=== PATIENT | male | born 1985 | race Caucasian/White ===

== ENCOUNTER 2017-05-02 21:06 | Emergency (ER) | payer OTHER ==
[~2017-05-02] VITALS: Ht 165.1 cm; Wt 68.0 kg
[~2017-05-02 21:06] MED LIST: ACYC200 PO; ACYC400 PO; ALPR.25 PO; AMOX500; AMOX500 PO; Bactrim Ds Tab1 EACH PO; CANNABIS; CEPH500 PO; CLON1 PO; DIAZ2 PO; HYDACE10B PO; HYDACE5 PO; IBUP200 PO; IBUP600 PO; IBUP800 PO; Keflex500 MG PO; MINO100 PO; NAPR500 PO; NAPR500EC; NIAC500 PO; NYST100TC; Naprosyn500 MG PO; OXYACE5T PO; PARO20 PO; PENVK500 PO; PROM25 PO; RXCLIN PO; RXHYDACE PO; SILSUL1TC TOP; SULTRIDS PO
[2017-05-03] MEDS ORDERED: Vancocin 11000 MG/20 INJ (17:01)
== END 2017-05-02 23:35 | disposition home or self-care (01) ==
LOC: ER 21:06
DX: L08.9 Local infection of the skin and subcutaneous tissue, unspecified (principal); F17.200 Nicotine dependence, unspecified, uncomplicated; Z98.890 Other specified postprocedural states; Z79.899 Other long term (current) drug therapy
CPT/HCPCS: 96365; 99282; J3370; J7050

== ENCOUNTER → 2018-06-08 | Outpatient (CLI) | payer OTHER ==
[~2018-06-08] MED LIST changes: +Vancocin 11000 MG/20 INJ
== END | disposition home or self-care (01) ==
LOC: LAB SHORT 13:40 → LAB EV 13:40
DX: L03.115 Cellulitis of right lower limb (principal)
CPT/HCPCS: 87070; 87077; 87147; 87186; 87205

== ENCOUNTER 2019-05-12 19:01 | Emergency (ER) | payer OTHER ==
[~2019-05-12] VITALS: Ht 162.6 cm; Wt 68.0 kg
== END 2019-05-12 22:47 | disposition home or self-care (01) ==
LOC: ER 19:01
DX: S60.222A Contusion of left hand, initial encounter (principal); W22.8XXA Striking against or struck by other objects, initial encounter; Y99.0 Civilian activity done for income or pay; F17.210 Nicotine dependence, cigarettes, uncomplicated
CPT/HCPCS: 73130; 99283-25

== ENCOUNTER 2022-03-23 09:12 | Emergency (ER) | payer OTHER ==
[~2022-03-23] VITALS: Ht 165.1 cm; Wt 68.0 kg
[2022-03-23] MEDS ORDERED: Cleocin HCl300 MG PO (10:11)
== END 2022-03-23 10:11 | disposition home or self-care (01) ==
LOC: ER 09:12
DX: K04.7 Periapical abscess without sinus (principal); F17.210 Nicotine dependence, cigarettes, uncomplicated; Z79.899 Other long term (current) drug therapy
CPT/HCPCS: 99282